=== PATIENT | female | born 1960 | race Caucasian/White ===

== ENCOUNTER 2025-01-10 15:55 | Outpatient (CLI) | payer MEDICARE, SELFPAY ==
--- NOTE | 2025-01-10 16:00 | XR_ITS ---
FINAL REPORT CLINICAL HISTORY: SOB FINDINGS: No acute pulmonary density is evident. There are vague opacities in the right midlung which may be related to old anterior right rib fractures. There is no evidence of effusion or other pleural disease. The mediastinum has a normal appearance. The cardiac silhouette is unremarkable. IMPRESSION: No acute pulmonary abnormality. Reviewed, Interpreted and Dictated by Erick Galindo MD Transcribed by Allie Jernigan Authenticated and [facility]
== END 2025-01-10 23:59 | disposition home or self-care (01) ==
LOC: RAD 15:58
PROVIDERS: PCP Student in an Organized Health Care Education/Training Program; Visit Provider Internal Medicine Pulmonary Disease
DX: R06.02 Shortness of breath (principal)
CPT/HCPCS: 71046

== ENCOUNTER 2025-01-13 08:28 | Outpatient (CLI) | payer MEDICARE, SELFPAY ==
--- NOTE | 2025-01-13 08:45 | CT_ITS ---
FINAL REPORT TECHNIQUE: Axial CT without IV contrast administration. Coronal and sagittal images were obtained and reviewed. This study was performed with techniques to keep radiation doses as low as reasonably achievable, (ALARA). Individualized dose reduction techniques using automated exposure control or adjustment of mA and/or kV according to the patient's size were employed. CLINICAL HISTORY: Abnormal CXR/Lytic rib lesion (vague opacities in the right midlung may be related to old anterior right rib fractures) COMPARISON: Chest x-ray 01/10/2025 FINDINGS: There are vague ground-glass opacities scattered within the right lung suspicious for bronchopneumonia. There are no areas of dense consolidation or cavitation. The left lung is clear. There is a tiny right pleural effusion. No pericardial effusion seen. No adenopathy or mass lesion is present. Surgical changes are noted in the right thorax. Chronic anterior right rib fractures are noted. IMPRESSION: Findings most compatible with mild right lung bronchopneumonia with tiny right pleural effusion. Reviewed, Interpreted and Dictated by Erick Galindo MD Transcribed by Cherri Baumann Authenticated and [facility]
== END 2025-01-13 23:59 | disposition home or self-care (01) ==
LOC: RAD 08:28
PROVIDERS: PCP Student in an Organized Health Care Education/Training Program; Visit Provider Internal Medicine Pulmonary Disease
DX: R91.8 Other nonspecific abnormal finding of lung field (principal); Z90.2 Acquired absence of lung [part of]; Z85.118 Personal history of other malignant neoplasm of bronchus and lung; M89.8X9 Other specified disorders of bone, unspecified site
CPT/HCPCS: 71250